=== PATIENT | female | born 1940 | race Caucasian/White ===

== ENCOUNTER 2017-01-18 23:25 | Emergency (ER) | payer MEDICARE, OTHER ==
[2017-01-18] MEDS ORDERED: PHENAZOPYRIDINE HCL 95 MG TABLET PO ONE (23:48)
--- NOTE | 2017-01-18 23:48 | Emergency Department Record ---
History of Present Illness - General Chief complaint: Female Urogenital Problem Stated complaint: UNABLE TO URINATE Time Seen by Provider: 01/18/17 23:40 Source: Patient Mode of Arrival: Ambulatory Limitations: No limitations - History of Present Illness Initial comments: 76 yo female states that around 5:30pm she developed frequency and a pressure to urinate. No fevers, chills, nausea or vomiting. No prior history of the same. No back pain. No flank pain. She has pressure over her lower abdomen MD Complaint: Dysuria, Pelvic pain -: Hour(s) (6) Location: Suprapubic Radiation: Suprapubic Severity: Moderate Quality: Cramping Consistency: Intermittent Improves with: None Worsens with: Urination Associated Symptoms: Denies other symptoms - Related Data Home Medications Medication Instructions Recorded Confirmed Last Taken Levothyroxine Sodium [Levoxyl] 100 mcg PO DAILY 12/20/14 01/18/17 08/08/16 100 Propranolol HCl 40 mg PO BID 12/20/14 01/18/17 08/07/16 40 Simvastatin [Zocor] 10 mg PO QHS 12/20/14 01/18/17 08/07/16 10 Previous Rx's Medication Instructions Recorded Nitrofurantoin Placer [Macrobid] 100 mg PO BID #14 capsule 01/19/17 Phenazopyridine HCl 100 mg PO TID #6 tablet 01/19/17 Allergies Allergy/AdvReac Type Severity Reaction Status Date / Time hydrocodone bitartrate Allergy ALTERED Verified 04/28/16 09:19 [From [place]] MENTAL STATUS hydromorphone HCl Allergy ALTERED Verified 04/28/16 09:19 [From Dilaudid] MENTAL STATUS Review of Systems Constitutional: Denies: Chills, Fever, Malaise, Weakness Eyes: Denies: Eye discharge ENT: Denies: Congestion, Throat pain Respiratory: Denies: Cough Cardiovascular: Denies: Chest pain, Palpitations, Syncope Endocrine: Denies: Fatigue Gastrointestinal: Reports: As per HPI, Abdominal pain. Denies: Diarrhea, Nausea , Vomiting Genitourinary: Reports: Dysuria, Frequency, Retention, Urgency Musculoskeletal: Denies: Arthralgia, Back pain, Myalgia Skin: Denies: Bruising, Change in color, Rash Neurological: Denies: Headache Psychiatric: Denies: Anxiety Hematological/Lymphatic: Denies: Blood Clots, Easy bleeding, Easy bruising, Swollen glands Past Medical History - SOCIAL HISTORY Smoking Status: Never smoker Drug Use: None - RESPIRATORY Hx Respiratory Disorders: No - CARDIOVASCULAR Hx Cardio Disorders: Yes Hx Irregular Heartbeat: Yes (tachycardia) - NEURO Hx Neuro Disorders: No - GI Hx GI Disorders: Yes Hx Diverticulitis: Yes Hx GI Bleed: Yes (since early 1989) Hx Rectal Bleeding: Yes Comment:: sparrow 11 days in april 2016 - Hx Genitourinary Disorders: No - ENDOCRINE Hx Endocrine Disorders: Yes Hx Thyroid Disease: Yes (hypothyroid) - MUSCULOSKELETAL Hx Musculoskeletal Disorders: Yes Hx Arthritis: Yes Hx Gout: Yes - PSYCH Hx Psych Problems: No - HEMATOLOGY/ONCOLOGY Hx Hematology/Oncology Disorders: No Hx Blood Transfusions: Yes (april 2016) Family Medical History Hx Cancer: Father, Mother, Brother/Sister Hx Heart Disease: Grandparents Hx HTN: Grandparents Physical Exam - General General Appearance: Alert, Oriented x3, Cooperative, No acute distress Limitations: No limitations - Head Head exam: Atraumatic, Normal inspection - Eye Eye exam: Normal appearance, PERRL. negative: Conjunctival injection, Periorbital swelling - ENT ENT exam: Normal exam Ear exam: Normal external inspection Nasal Exam: Normal inspection Mouth exam: Normal external inspection - Neck Neck exam: Normal inspection, Full ROM. negative: Tenderness - Respiratory Respiratory exam: Normal lung sounds bilaterally. negative: Respiratory distress - Cardiovascular Cardiovascular Exam: Regular rate, Normal rhythm, Normal heart sounds - GI/Abdominal GI/Abdominal exam: Soft. negative: Distended, Rebound, Rigid, Tenderness - Rectal Rectal exam: Deferred - exam: Deferred - Extremities Extremities exam: Normal inspection, Full ROM, Normal capillary refill. negative: Tenderness - Back Back exam: Reports: Normal inspection, Full ROM. Denies: CVA tenderness (R), CVA tenderness (L), Muscle spasm, Paraspinal tenderness, Rash noted, Tenderness , Vertebral tenderness - Neurological Neurological exam: Alert, Normal gait, Oriented X3 - Psychiatric Psychiatric exam: Normal affect, Normal mood - Skin Skin exam: Dry, Intact, Normal color, Warm Course - Reevaluation(s) Reevaluation #1: EMR reviewed Prior renal function has been in the normal range. 01/18/17 23:53 Reevaluation #2: Bladder Scan 23ml 01/19/17 00:00 Reevaluation #3: No acute changes on the BMP The UA is LE positive, N negative, positive for WBC's and +2 bacteria 01/19/17 00:25 Reevaluation #4: CT reviewed. Negative except suggestion of bladder wall thickening. Diverticulosis without diverticulitis. No renal system stones or pathology. Macrobid and Pyridum provided in the ED No retention on the bladder scan or the CT scan. 01/19/17 00:38 01/19/17 00:41 Medical Decision Making - Lab Data Result diagrams: 01/18/17 23:40 01/18/17 23:55 Disposition Disposition: Discharge Clinical Impression: Urinary tract infection Qualifiers: Urinary tract infection type: acute cystitis Hematuria presence: with hematuria Qualified Code(s): N30.01 - Acute cystitis with hematuria Disposition: Home, Self-Care Condition: (1) Good Instructions: Urinary Tract Infection in Women (ED) Additional Instructions: Call your doctor tomorrow for a recheck Return if worse or unable to urinate Prescriptions: Nitrofurantoin Placer [Macrobid] 100 mg PO BID #14 capsule Phenazopyridine HCl 100 mg PO TID #6 tablet Forms: Patient Portal Access Time of Disposition: 00:40
[2017-01-19 00:06] LABS: BASO % 0.6 % (0-6); EOS % 2.3 % (0-6); GRAN % 68.7 % (47-80); HEMATOCRIT 42.6 % (35.0-47.0); LYMPH % 19.8 % (16-45); MEAN CORPUSCULAR HEMOGLOBIN 29.9 pg (27-33); MEAN CORPUSCULAR HGB CONC 32.9 g/dl (32-36); MEAN PLATELET VOLUME 11.8 fl (7.4-10.4); MONO % 8.6 % (0-9); PLATELET COUNT 268 K/uL (130-400); RED BLOOD COUNT 4.68 M/uL (3.80-5.40); RED CELL DISTRIBUTION WIDTH 14.5 % (11.5-14.5); WHITE BLOOD COUNT W/O DIFF 10.6 K/uL (4.2-12.2)
[2017-01-19 00:08] LABS: URINE APPEARANCE CLEAR; URINE BILIRUBIN NEGATIVE (NEGATIVE); URINE BLOOD LARGE (NEGATIVE); URINE COLOR YELLOW; URINE GLUCOSE (UA) NEGATIVE (NEGATIVE); URINE KETONE NEGATIVE (NEGATIVE); URINE LEUKOCYTE ESTERASE SMALL (NEGATIVE); URINE NITRITE NEGATIVE (NEGATIVE); URINE UROBILINOGEN 0.2 E.U./dL (0.20 - 1.00)
[2017-01-19 00:20] LABS: GLUCOSE,RANDOM 109 mg/dL (70-110)
[2017-01-19 00:21] LABS: BLOOD UREA NITROGEN 14 mg/dL (7-17); CREATININE 0.7 mg/dL (0.52-1.04); EST GLOMERULAR FILTRATION RATE > 60 ml/min
[2017-01-19 00:22] LABS: URINE BACTERIA 2+; URINE WBC 16 - 20 (0-2/hpf)
[2017-01-19] MEDS ORDERED: NITROFURANTOIN MONO 100 MG CAPSULE PO ONE (00:25)
--- NOTE | 2017-01-23 14:44 | CT SCAN REPORT ---
EXAM: CT SCAN OF THE ABDOMEN AND PELVIS WITHOUT CONTRAST HISTORY: DIFFICULTY URINATING WHICH BEGAN SIX HOURS PRIOR TO ADMISSION. TECHNIQUE: Standard CT imaging of the abdomen and pelvis was performed without contrast. Comparison: 04/28/16. Encounter: Not applicable. FINDINGS: The lung bases are clear. A small hiatal hernia is present. The liver parenchyma is normal. The gallbladder is surgically absent. The biliary tree, pancreas, spleen, and adrenal glands are normal. The kidneys and ureters are unremarkable. There is no urinary tract calculus or obstructive uropathy. The urinary bladder is incompletely distended. Minor wall thickening is likely artifactual due to the incomplete distention. There are no significant surrounding inflammatory changes. There is a small amount of nonspecific fluid within the pelvis. The uterus is surgically absent. The aorta is normal in caliber. There is no retroperitoneal lymphadenopathy. There are scattered diverticula within the colon and greatest within the sigmoid region. There is no evidence for acute diverticulitis. The bowel and mesentery are otherwise normal. There is no pneumoperitoneum. Degenerative changes are present within the spine. There are no acute osseous abnormalities. IMPRESSION: 1. THERE IS NO EVIDENCE FOR URINARY TRACT CALCULUS OR OBSTRUCTIVE UROPATHY. 2. A SMALL AMOUNT OF NONSPECIFIC FREE FLUID IS PRESENT WITHIN THE PELVIS. 3. COLONIC DIVERTICULOSIS WITH NO EVIDENCE FOR ACUTE DIVERTICULITIS. 4. SMALL HIATAL HERNIA. JOB NUMBER: [id number] [facility]
== END 2017-01-19 00:55 | disposition home or self-care (01) ==
LOC: ER 23:25
DX: N30.01 Acute cystitis with hematuria (principal); K57.90 Diverticulosis of intestine, part unspecified, without perforation or abscess without bleeding
CPT/HCPCS: 74176; 80048; 81001; 85025; 99283; 99284

== ENCOUNTER 2018-11-30 12:41 | Emergency (ER) | payer MEDICARE, OTHER ==
[2018-11-30] MEDS ORDERED: 0.9 % SODIUM CHLORIDE 1,000 ML BAG IV ONE (12:49)
--- NOTE | 2018-11-30 12:52 | Emergency Department Record ---
History of Present Illness - General Chief Complaint: Abdominal Pain Stated Complaint: STOMACH PAIN Time Seen by Provider: 11/30/18 12:43 Source: Patient Mode of Arrival: Ambulatory Limitations: No limitations - History of Present Illness Initial Comments: 78 yo female presents with abdominal pain. The pain started about 2 days ago but it was very mild. The pain has gradually worsened. It is on the left side mostly. The pain increased over the night. No vomiting or diarrhea. No dysuria. No blood in the stools. She felt a little chilled. She has a mild decrease in her appetite. She has a history of prior diverticulosis, diverticular bleed, diverticulosis. PCP is Dr Curry. Complaint: Abdominal pain -: Days(s) (2) Location: LLQ Radiation: LLQ Migration to: LLQ Severity: Moderate Quality: Aching Consistency: Constant Improves With: Nothing Worsens With: Movement Context: Other Associated Symptoms: Other Treatments Prior to Arrival: Other - Related Data Home Medications Medication Instructions Recorded Confirmed Last Taken Enalapril Maleate 5 mg PO DAILY 11/30/18 11/30/18 11/30/18 Previous Rx's Medication Instructions Recorded Ciprofloxacin HCl [Cipro] 500 mg PO Q12HR #14 tablet 11/30/18 Metronidazole [Flagyl] 500 mg PO TID #21 tablet 11/30/18 Allergies Allergy/AdvReac Type Severity Reaction Status Date / Time hydrocodone bitartrate Allergy ALTERED Verified 04/28/16 09:19 [From [place]] MENTAL STATUS hydromorphone HCl Allergy ALTERED Verified 04/28/16 09:19 [From Dilaudid] MENTAL STATUS Review of Systems Constitutional: Denies: Chills, Fever, Malaise, Weakness Eyes: Denies: Eye discharge ENT: Denies: Congestion, Throat pain Respiratory: Denies: Cough, Dyspnea Cardiovascular: Denies: Chest pain, Palpitations, Syncope Endocrine: Denies: Fatigue Gastrointestinal: Reports: Abdominal pain Genitourinary: Denies: Dysuria Musculoskeletal: Denies: Arthralgia, Back pain, Myalgia Skin: Denies: Bruising, Change in color, Rash Neurological: Denies: Headache Psychiatric: Denies: Anxiety Hematological/Lymphatic: Denies: Blood Clots, Easy bleeding, Easy bruising Past Medical History - SOCIAL HISTORY Smoking Status: Never smoker Drug Use: None - RESPIRATORY Hx Respiratory Disorders: No - CARDIOVASCULAR Hx Cardio Disorders: Yes Hx Irregular Heartbeat: Yes (tachycardia) - NEURO Hx Neuro Disorders: No - GI Hx GI Disorders: Yes Hx Diverticulitis: Yes Hx GI Bleed: Yes (since early 1989) Hx Rectal Bleeding: Yes Comment:: [place] 11 days in april 2016 - Hx Genitourinary Disorders: No - ENDOCRINE Hx Endocrine Disorders: Yes Hx Thyroid Disease: Yes (hypothyroid) - MUSCULOSKELETAL Hx Musculoskeletal Disorders: Yes Hx Arthritis: Yes Hx Gout: Yes - PSYCH Hx Psych Problems: No - HEMATOLOGY/ONCOLOGY Hx Hematology/Oncology Disorders: No Hx Blood Transfusions: Yes (april 2016) Family Medical History Hx Cancer: Father, Mother, Brother/Sister Hx Heart Disease: Grandparents Hx HTN: Grandparents Physical Exam - General General Appearance: Alert, Oriented x3, Cooperative, No acute distress Limitations: No limitations - Head Head exam: Atraumatic, Normal inspection - Eye Eye exam: Normal appearance. negative: Conjunctival injection - ENT ENT exam: Normal exam Ear exam: Normal external inspection Nasal Exam: Normal inspection Mouth exam: Normal external inspection - Neck Neck exam: Normal inspection - Respiratory Respiratory exam: Normal lung sounds bilaterally. negative: Accessory muscle use, Respiratory distress, Wheezes - Cardiovascular Cardiovascular Exam: Regular rate, Normal rhythm, Normal heart sounds - GI/Abdominal GI/Abdominal exam: Soft, Normal bowel sounds, Tenderness (tender abdomen on the left. the remainder of the abdomen is very soft, mild tenderness on examination ). negative: Diminished bowel sounds, Distended, Guarding, Hypoactive bowel sounds, Rebound - Rectal Rectal exam: Deferred - Extremities Extremities exam: Normal inspection - Back Back exam: Denies: CVA tenderness (R), CVA tenderness (L) - Neurological Neurological exam: Alert, Normal gait, Oriented X3. negative: Abnormal gait - Psychiatric Psychiatric exam: Normal affect, Normal mood. negative: Agitated, Anxious - Skin Skin exam: Dry, Intact, Normal color, Warm Course - Reevaluation(s) Reevaluation #1: Vitals reviewed. No significant abnormalities. Prior admission and CT reviewed from 2017. Diverticulosis noted. 11/30/18 13:04 11/30/18 13:19 CBC was reviewed. WBC is 17 11/30/18 13:35 No acute changes on the BMP. Normal renal function. 11/30/18 13:53 Pain improved with the Ofirmev Lipase and LFT's are normal 11/30/18 16:[address] scan was reviewed. Thickening of the descending and sigmoid colon with inflammation. Diverticulosis noted. The differential included diverticulitis, ischemia, non specific inflammation. Given her gradual onset, history of diverticulitis, clinically appearing well and non ill diverticulitis is the most likely cause. I discussed this with the patient. She was given Cipro and Flagyl. We discussed treatment options. Her pain is essential gone at this time, she is eating normally. She is a reliable good outpatient candidate that will return if worse or any new concerns. Medical Decision Making - Lab Data Result diagrams: 11/30/18 13:05 11/30/18 13:05 Disposition Disposition: Discharge Clinical Impression: Diverticulitis Disposition: Home, Self-Care Condition: (1) Good Instructions: Diverticulitis (ED), Abdominal Pain (ED) Additional Instructions: [place] diet for the next week Immediately return if worse, uncontrolled pain, blood in the stools, fever Take the antibiotics as directed for one week Follow up with Dr Curry as scheduled. Prescriptions: Ciprofloxacin HCl [Cipro] 500 mg PO Q12HR #14 tablet Metronidazole [Flagyl] 500 mg PO TID #21 tablet Forms: Patient Portal Access Time of Disposition: 16:24 Quality - Quality Measures Quality Measures: N/A - Blood Pressure Screening Does Patient Have Any of the Following: Active Dx of HTN Blood Pressure Classification: Normal BP Reading Systolic Measurement: 107 Diastolic Measurement: 67 Screening for High Blood Pressure: Patient Exclusion, Hx of HTN [[id number]]
[2018-11-30] MEDS ORDERED: ACETAMINOPHEN 1,000 MG/100 ML BTL IVPB ONE (13:00)
[2018-11-30 13:17] LABS: BASO % 0.2 % (0-6); EOS % 1.6 % (0-6); HEMATOCRIT 40.6 % (35.0-47.0); HEMOGLOBIN 13.9 gm/dl (11.6-16.0); LYMPH % 9.3 % (16-45); MEAN CELL VOLUME 91.9 fl (81-97); MEAN CORPUSCULAR HEMOGLOBIN 31.4 pg (27-33); MEAN CORPUSCULAR HGB CONC 34.2 g/dl (32-36); MEAN PLATELET VOLUME 11.8 fl (7.4-10.4); MONO % 10.9 % (0-9); PLATELET COUNT 245 K/uL (130-400); RED BLOOD COUNT 4.42 M/uL (3.80-5.40); RED CELL DISTRIBUTION WIDTH 14.1 % (11.5-14.5); WHITE BLOOD COUNT W/O DIFF 17.1 K/uL (4.2-12.2)
[2018-11-30 13:30] LABS: BLOOD UREA NITROGEN 10 mg/dL (8-23); CREATININE 0.6 mg/dL (0.5-0.9); EST GLOMERULAR FILTRATION RATE > 60 mL/min
[2018-11-30 13:31] LABS: TOTAL PROTEIN 7.5 g/dL (6.6-8.7)
[2018-11-30 13:33] LABS: GLUCOSE,RANDOM 101 mg/dL (74-109)
[2018-11-30 13:36] LABS: ALB/GLOB RATIO 1.2 (1.1-1.8); ALBUMIN 4.1 g/dL (4.0-5.0); ALKALINE PHOSPHATASE 73 U/L (45-87); ALT/SGPT 6 U/L (<33); AST/SGOT 14 U/L (10.0-35.0); LIPASE 20 U/L (13-60)
[2018-11-30 14:26] LABS: URINE APPEARANCE CLEAR; URINE BILIRUBIN NEGATIVE (NEGATIVE); URINE BLOOD SMALL (NEGATIVE); URINE COLOR YELLOW; URINE GLUCOSE (UA) NEGATIVE (NEGATIVE); URINE KETONE NEGATIVE (NEGATIVE); URINE LEUKOCYTE ESTERASE NEGATIVE (NEGATIVE); URINE NITRITE NEGATIVE (NEGATIVE); URINE PROTEIN NEGATIVE (NEGATIVE); URINE UROBILINOGEN 0.2 E.U./dL (0.20 - 1.00)
[2018-11-30 14:34] LABS: URINE RBC 0 - 2 (NONE SEEN); URINE WBC NONE SEEN (0-2/hpf)
[2018-11-30] MEDS ORDERED: METRONIDAZOLE 250 MG TABLET PO ONE (16:15)
[2018-11-30] MEDS ORDERED: CIPROFLOXACIN HCL 500 MG TABLET PO ONE (16:15)
--- NOTE | 2018-12-02 09:35 | CT SCAN REPORT ---
EXAM: CT OF THE ABDOMEN AND PELVIS HISTORY: MID LEFT ABDOMINAL PAIN. TECHNIQUE: CT of the abdomen and pelvis was performed following intravenous and oral contrast administration. 100 ml of Omnipaque 300 contrast are used for this exam. Comparison: 01/19/17. FINDINGS: Linear scarring is seen at the right lung base. No lung nodule or mass. There is a small hiatal hernia present. There is diverticulosis involving the descending colon and sigmoid colon. There is wall thickening of the distal descending colon and proximal sigmoid colon and there are adjacent inflammatory changes. There is no focal fluid collection or abscess identified. There is no free air. There is a tiny amount of free fluid present. This was also seen previously and is nonspecific. The liver and spleen are unremarkable. No pancreatic mass or inflammatory change. No adrenal lesion. The gallbladder is surgically absent. There is bilateral renal function with no renal mass or hydronephrosis. There is no aortic aneurysm. There is a retroaortic left renal vein which is a normal variation. There is no periaortic mass or adenopathy. There are no dilated bowel loops. The uterus is surgically absent. No lytic or blastic bone lesion. The anterior abdominal wall is unremarkable. IMPRESSION: 1. THERE IS DIVERTICULOSIS. 2. THERE ARE INFLAMMATORY CHANGES IN THE WALL OF THE DISTAL DESCENDING COLON AND PROXIMAL SIGMOID COLON. THIS MAY BE DUE TO DIVERTICULITIS. OTHER CONSIDERATIONS WOULD INCLUDE INFECTIOUS OR ISCHEMIC PROCESSES. 3. NO ABSCESS OR FREE AIR. 4. TINY AMOUNT OF FREE FLUID WHICH MAY BE PHYSIOLOGIC. 5. PRIOR HYSTERECTOMY AND CHOLECYSTECTOMY. 6. SMALL HIATAL HERNIA. 7. PLEASE SEE ABOVE FOR FULL DISCUSSION. JOB NUMBER: [id number] [facility]
== END 2018-11-30 16:39 | disposition home or self-care (01) ==
LOC: ER 12:41
DX: K57.92 Diverticulitis of intestine, part unspecified, without perforation or abscess without bleeding (principal); I10 Essential (primary) hypertension
CPT/HCPCS: 99284 ×2; 96365; 83690; 85025; 80053; 81001; 74177; Q9967; J7030

== ENCOUNTER 2019-04-21 09:33 | Day surgery (SDC) | payer MEDICARE, OTHER ==
[2019-04-21] MEDS ORDERED: PROPOFOL 10 MG/ML VIAL IV ONE (09:34)
[2019-04-21] MEDS ORDERED: LIDOCAINE 2% MDV (20MG/ML) 20ML VIAL IV ONE (09:34)
--- NOTE | 2019-04-23 09:40 | Operative Note ---
DATE OF SURGERY: 04/21/2019 SURGEON: Erich Lopez D.O. REFERRING PHYSICIAN: Kenneth Curry D.O. OPERATION: 1. COLONOSCOPY TO THE CECUM WITH COLD SNARE POLYPECTOMY x2. 2. ENDOCLIP PLACEMENT BY ANTONIO AND BIOPSY. INDICATION: History of adenomatous polyps, family history of colon cancer in both parents. She presents at this time after 3 years for surveillance, as previous examinations demonstrated multiple adenomatous polyps. ANESTHESIA: Intravenous sedation was administered by the Department of Anesthesiology and included Diprivan titrated to effect. PROCEDURE: Following informed consent from this alert individual, including a discussion of the risks and benefits of the procedure and opportunity for the patient to ask questions, the patient was in the left lateral decubitus position. Digital rectal examination was performed. No abnormalities were noted. Following this, the Olympus PCF 180 video colonoscope was inserted in the rectum without resistance. The rectal mucosa had a normal appearance with normal folds and distensibility. The sigmoid colon had scattered diverticula noted throughout. The colonoscope was further advanced up through the descending colon, the transverse colon through the ascending colon to the cecum. Throughout the remainder of the bowel the mucosa appeared normal, folds were normal, the bowel was fairly well distensible. The cecum was defined by noting the appendiceal orifice and the ileocecal valve. At the base of the cecum there was a diminutive 4 mm polyp noted which was removed with cold snare polypectomy. There was initially some bleeding noted and for this reason, an Endoclip was placed with hemostasis noted. From the base of the cecum, the colonoscope was then slowly withdrawn. The colon preparation overall was good. In the transverse colon there was a 2nd polyp measuring 5 mm in size which was removed with cold snare polypectomy and suctioned through the colonoscope into a collection trap. Upon withdrawal through the sigmoid colon there was extensive diverticulosis. There was one area where there was an inflammatory-appearing polyp noted in the diverticulum with purulent exudate noted emanating from that diverticulum. The area was washed and then a small biopsy was taken of the inflammatory-appearing polyp in the sigmoid colon. The colonoscope was then further withdrawn. The remainder of the examination was unremarkable. Retroflexion in the rectum was endoscopically normal. The endoscope was straightened and withdrawn. The patient tolerated the procedure well and was returned to the recovery area in stable condition. IMPRESSION: 1. Sigmoid diverticulosis with one focus of probable diverticulitis with purulent exudate and inflammatory-appearing polyp, biopsy taken. 2. A 4 mm cecal polyp, removed with cold snare polypectomy, Endoclip placed with hemostasis noted. 3. A 5 mm transverse colon polyp removed with cold snare polypectomy. RECOMMENDATIONS: Further recommendations will be forthcoming pending results of pathology obtained today. I will start the patient with a combination of Cipro and Flagyl to treat the diverticulitis, which was apparent endoscopically. Clinically, she denies significant discomfort. Followup will also be with Dr. Kenneth Curry. As always, thank you for allowing me to participate in the care of your patient. IGOR
== END 2019-04-21 12:05 | disposition home or self-care (01) ==
LOC: HOP 09:33
PROVIDERS: ATTEND Internal Medicine Gastroenterology
DX: Z09 Encounter for follow-up examination after completed treatment for conditions other than malignant neoplasm (principal); Z86.010 Personal history of colon polyps; D12.0 Benign neoplasm of cecum; D12.3 Benign neoplasm of transverse colon; D12.5 Benign neoplasm of sigmoid colon; K57.30 Diverticulosis of large intestine without perforation or abscess without bleeding; Z80.0 Family history of malignant neoplasm of digestive organs; I10 Essential (primary) hypertension; E78.00 Pure hypercholesterolemia, unspecified; E03.9 Hypothyroidism, unspecified

== ENCOUNTER 2019-06-16 11:02 | Emergency (ER) | payer MEDICARE, OTHER ==
[2019-06-16] MEDS ORDERED: 0.9 % SODIUM CHLORIDE 1,000 ML BAG IV ONE (11:27)
[2019-06-16 11:43] LABS: ABSOLUTE NEUTROPHIL COUNT 7.68; HEMATOCRIT 45.4 % (35.0-47.0); HEMOGLOBIN 14.3 gm/dl (11.6-16.0); MEAN CORPUSCULAR HEMOGLOBIN 29.9 pg (27-33); MEAN CORPUSCULAR HGB CONC 31.5 g/dl (32-36); MEAN PLATELET VOLUME 12.2 fl (7.4-10.4); PLATELET COUNT 210 K/uL (130-400); RED BLOOD COUNT 4.78 M/uL (3.80-5.40); WHITE BLOOD COUNT W/O DIFF 8.2 K/uL (4.2-12.2)
[2019-06-16 11:55] LABS: PLATELET ESTIMATE NORMAL (NORMAL)
[2019-06-16 11:57] LABS: BLOOD UREA NITROGEN 13 mg/dL (8-23)
[2019-06-16 11:58] LABS: CREATININE 0.8 mg/dL (0.5-0.9); EST GLOMERULAR FILTRATION RATE > 60 mL/min; TOTAL PROTEIN 7.4 g/dL (6.6-8.7)
[2019-06-16 12:00] LABS: GLUCOSE,RANDOM 97 mg/dL (74-109)
[2019-06-16 12:03] LABS: ALB/GLOB RATIO 1.4 (1.1-1.8); ALBUMIN 4.3 g/dL (4.0-5.0); ALKALINE PHOSPHATASE 86 U/L (35-104); ALT/SGPT 8 U/L (<33); AST/SGOT 20 U/L (10.0-35.0)
[2019-06-16 13:08] LABS: URINE APPEARANCE CLEAR; URINE BILIRUBIN NEGATIVE (NEGATIVE); URINE BLOOD NEGATIVE (NEGATIVE); URINE COLOR YELLOW; URINE GLUCOSE (UA) NEGATIVE (NEGATIVE); URINE KETONE NEGATIVE (NEGATIVE); URINE LEUKOCYTE ESTERASE NEGATIVE (NEGATIVE); URINE NITRITE NEGATIVE (NEGATIVE); URINE PROTEIN NEGATIVE (NEGATIVE); URINE UROBILINOGEN 0.2 E.U./dL (0.20 - 1.00)
--- NOTE | 2019-06-16 13:59 | Emergency Department Record ---
History of Present Illness - General Chief Complaint: Fever Stated Complaint: Chills, shakes Time Seen by Provider: 06/16/19 11:22 Source: Patient Mode of Arrival: EMS Limitations: No limitations - History of Present Illness Initial Comments: pt has chills, shakes, feels weak and has body aches. MD Complaint: Weakness Onset/Timin -: Week(s) Maximum Temperature: 100.2 F Temperature Source: Oral Context: Recent travel Associated Symptoms: Chills, Headache - Related Data Allergies Allergy/AdvReac Type Severity Reaction Status Date / Time hydrocodone bitartrate Allergy ALTERED Verified 06/16/19 11:11 [From [place]] MENTAL STATUS hydromorphone HCl Allergy ALTERED Verified 06/16/19 11:11 [From Dilaudid] MENTAL STATUS Travel Screening - Travel/Exposure Within Last 30 Days Have you traveled within the last 30 days?: Yes Location Detail:: [place] - Travel Symptoms Symptom Screening: Fever (Subjective), Joint & Muscle Aches, Weakness Review of Systems Reviewed: No additional complaints except as noted below Constitutional: Reports: As per HPI, Chills, Malaise, Weakness. Denies: Fever, Night sweats, Weight change Eyes: Reports: As per HPI. Denies: Eye discharge, Eye pain, Photophobia, Vision change ENT: Reports: As per HPI. Denies: Congestion, Dental pain, Ear pain, Epistaxis, Hearing loss, Throat pain Respiratory: Reports: As per HPI. Denies: Cough, Dyspnea, Hemoptysis, Stridor, Wheezes Cardiovascular: Reports: As per HPI. Denies: Arrhythmia, Chest pain, Dyspnea on exertion, Edema, Murmurs, Orthopnea, Palpitations, Paroxysmal nocturnal dyspnea, Rheumatic Fever, Syncope Endocrine: Reports: As per HPI, Fatigue. Denies: Heat or cold intolerance, Polydipsia, Polyuria Gastrointestinal: Reports: As per HPI. Denies: Abdominal pain, Constipation, Diarrhea, Hematemesis, Hematochezia, Melena, Nausea, Vomiting Genitourinary: Reports: As per HPI. Denies: Abnormal menses, Discharge, Dyspareunia, Dysuria, Frequency, Hematuria, Incontinence, Retention, Urgency Musculoskeletal: Reports: As per HPI. Denies: Arthralgia, Back pain, Gout, Joint swelling, Myalgia, Neck pain Skin: Reports: As per HPI. Denies: Bruising, Change in color, Change in hair/nails, Lesions, Pruritus, Rash Neurological: Reports: As per HPI. Denies: Abnormal gait, Confusion, Headache, Numbness, Paresthesias, Seizure, Tingling, Tremors, Vertigo, Weakness Psychiatric: Reports: As per HPI. Denies: Anxiety, Auditory hallucinations, Depression, Homicidal thoughts, Suicidal thoughts, Visual hallucinations Hematological/Lymphatic: Reports: As per HPI. Denies: Anemia, Blood Clots, Easy bleeding, Easy bruising, Swollen glands Past Medical History - SOCIAL HISTORY Smoking Status: Never smoker Alcohol Use: None Drug Use: None - RESPIRATORY Hx Respiratory Disorders: No - CARDIOVASCULAR Hx Cardio Disorders: Yes Hx Hypertension: Yes Hx Irregular Heartbeat: Yes (tachycardia) Comment:: high cholesterol - NEURO Hx Neuro Disorders: No - GI Hx GI Disorders: Yes Hx Diverticulitis: Yes Hx GI Bleed: Yes (since early 1989) Hx Reflux: Yes Hx Rectal Bleeding: Yes Hx of Polyps: Yes Comment:: . - Hx Genitourinary Disorders: No - ENDOCRINE Hx Endocrine Disorders: Yes Hx Thyroid Disease: Yes (hypothyroid) - MUSCULOSKELETAL Hx Musculoskeletal Disorders: Yes Hx Arthritis: Yes Hx Gout: Yes - PSYCH Hx Psych Problems: No - HEMATOLOGY/ONCOLOGY Hx Hematology/Oncology Disorders: Yes Hx Anemia: Yes Hx Blood Transfusions: Yes (april 2016) Hx Blood Transfusion Reaction: No Family Medical History Any Significant Family History?: Yes Hx Cancer: Father, Mother, Brother/Sister Hx Heart Disease: Grandparents Hx HTN: Grandparents Physical Exam - General General Appearance: Alert, Oriented x3, Cooperative, Mild distress - Head Head exam: Normal inspection - Eye Eye exam: Normal appearance, PERRL, EOMI Pupils: Normal accommodation - ENT ENT exam: Normal exam, Mucous membranes moist, Normal external ear exam, Normal orophraynx Ear exam: Normal external inspection. negative: External canal tenderness Nasal Exam: Normal inspection. negative: Discharge, Sinus tenderness Mouth exam: Normal external inspection, Tongue normal Teeth exam: Normal inspection. negative: Dental caries Throat exam: Normal inspection. negative: Tonsillar erythema, Tonsillar exudate - Neck Neck exam: Normal inspection, Full ROM. negative: Tenderness - Respiratory Respiratory exam: Normal lung sounds bilaterally. negative: Respiratory distress - Cardiovascular Cardiovascular Exam: Regular rate, Normal rhythm, Normal heart sounds - GI/Abdominal GI/Abdominal exam: Soft, Normal bowel sounds. negative: Tenderness - Rectal Rectal exam: Deferred - exam: Deferred - Extremities Extremities exam: Normal inspection, Full ROM, Normal capillary refill. negative: Tenderness - Back Back exam: Reports: Normal inspection, Full ROM. 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 Reevaluation #2: 06/16/19 14:04 d/w dr lott Medical Decision Making - Lab Data Result diagrams: 06/16/19 11:42 06/16/19 11:42 Lab Results 06/16/19 06/16/19 06/16/19 Range/Units 11:42 11:42 13:00 WBC 8.2 (4.2-12.2) K/uL RBC 4.78 (3.80-5.40) M/uL Hgb 14.3 (11.6-16.0) gm/dl Hct 45.4 (35.0-47.0) % MCV 95.0 (81-97) fl MCH 29.9 (27-33) pg MCHC 31.5 L (32-36) g/dl RDW 14.0 (11.5-14.5) % Plt Count 210 (130-400) K/uL MPV 12.2 H (7.4-10.4) fl Neutrophils % 92.0 H (47-80) % Band Neutrophils % 3.0 (0-5) % Eosinophils % Not Reportable Basophils % Not Reportable Absolute Neutrophils 7.68 Lymphocytes 4.0 L (16-45) % Monocytes 1.0 (0-9) % Platelet Estimate Normal (NORMAL) RBC Morphology Normal Sodium 144 (136-145) mmol/L Potassium 4.3 (3.4-4.5) mmol/L Chloride 104 (98-107) mmol/L Carbon Dioxide 28.0 (22-29) mmol/L Anion Gap 12.0 (7-16) BUN 13 (8-23) mg/dL Creatinine 0.8 (0.5-0.9) mg/dL Estimated GFR > 60 mL/min Random Glucose 97 (74-109) mg/dL Lactic Acid 2.0 (0.5-2.2) mmol/L Calcium 9.2 (8.8-10.2) mg/dL Total Bilirubin 0.70 (0.2-1.0) mg/dL AST 20 (10.0-35.0) U/L ALT 8 (<33) U/L Alkaline Phosphatase 86 (35-104) U/L Total Protein 7.4 (6.6-8.7) g/dL Albumin 4.3 (4.0-5.0) g/dL Globulin 3.1 (1.4-4.8) gm/dL Albumin/Globulin Ratio 1.4 (1.1-1.8) Urine Color Yellow Urine Appearance Clear Urine pH 6.5 (5.0-8.0) Ur Specific [place] 1.020 (1.002-1.030) Urine Protein Negative (NEGATIVE) Urine Glucose (UA) Negative (NEGATIVE) Urine Ketones Negative (NEGATIVE) Urine Blood Negative (NEGATIVE) Urine Nitrite Negative (NEGATIVE) Urine Bilirubin Negative (NEGATIVE) Urine Urobilinogen 0.2 (0.20 - 1.00) E.U./dL Ur Leukocyte Esterase Negative (NEGATIVE) Disposition Disposition: Discharge Clinical Impression: Mass of lung Disposition: Home, Self-Care Condition: (1) Good Instructions: Weakness (ED), Pulmonary Nodules (ED) Additional Instructions: follow up with dr lott this week. return sooner ifworse. push fluids Quality - Quality Measures Quality Measures: N/A - Blood Pressure Screening Does Patient Have Any of the Following: No Blood Pressure Classification: Normal BP Reading Systolic Measurement: 117 Diastolic Measurement: 76 Screening for High Blood Pressure: < Normal BP, F/U Not Required > [G3192]
[2019-06-16] MEDS ORDERED: AZITHROMYCIN 500 MG TABLET PO ONE (14:21)
--- NOTE | 2019-06-16 14:25 | Emergency Department Record ---
History of Present Illness - General Chief Complaint: Fever Stated Complaint: Chills, shakes Time Seen by Provider: 06/16/19 11:22 Source: Patient Mode of Arrival: EMS Limitations: No limitations - History of Present Illness Onset/Timin -: Week(s) Maximum Temperature: 100.2 F Temperature Source: Oral Context: Recent travel Associated Symptoms: Chills, Headache - Related Data Previous Rx's Medication Instructions Recorded Azithromycin [Zithromax] 250 mg PO DAILY #4 tab 06/16/19 Allergies Allergy/AdvReac Type Severity Reaction Status Date / Time hydrocodone bitartrate Allergy ALTERED Verified 06/16/19 11:11 [From [place]] MENTAL STATUS hydromorphone HCl Allergy ALTERED Verified 06/16/19 11:11 [From Dilaudid] MENTAL STATUS Travel Screening - Travel/Exposure Within Last 30 Days Have you traveled within the last 30 days?: Yes Location Detail:: [place] - Travel Symptoms Symptom Screening: Fever (Subjective), Joint & Muscle Aches, Weakness Review of Systems Constitutional: Reports: As per HPI, Chills, Malaise, Weakness. Denies: Fever, Night sweats, Weight change Eyes: Reports: As per HPI. Denies: Eye discharge, Eye pain, Photophobia, Vision change ENT: Reports: As per HPI. Denies: Congestion, Dental pain, Ear pain, Epistaxis, Hearing loss, Throat pain Respiratory: Reports: As per HPI. Denies: Cough, Dyspnea, Hemoptysis, Stridor, Wheezes Cardiovascular: Reports: As per HPI. Denies: Arrhythmia, Chest pain, Dyspnea on exertion, Edema, Murmurs, Orthopnea, Palpitations, Paroxysmal nocturnal dyspnea, Rheumatic Fever, Syncope Endocrine: Reports: As per HPI, Fatigue. Denies: Heat or cold intolerance, Po lydipsia, Polyuria Gastrointestinal: Reports: As per HPI. Denies: Abdominal pain, Constipation, Diarrhea, Hematemesis, Hematochezia, Melena, Nausea, Vomiting Genitourinary: Reports: As per HPI. Denies: Abnormal menses, Discharge, Dyspareunia, Dysuria, Frequency, Hematuria, Incontinence, Retention, Urgency Musculoskeletal: Reports: As per HPI. Denies: Arthralgia, Back pain, Gout, Joint swelling, Myalgia, Neck pain Skin: Reports: As per HPI. Denies: Bruising, Change in color, Change in hair/na ils, Lesions, Pruritus, Rash Neurological: Reports: As per HPI. Denies: Abnormal gait, Confusion, Headache, Numbness, Paresthesias, Seizure, Tingling, Tremors, Vertigo, Weakness Psychiatric: Reports: As per HPI. Denies: Anxiety, Auditory hallucinations, Depression, Homicidal thoughts, Suicidal thoughts, Visual hallucinations Hematological/Lymphatic: Reports: As per HPI. Denies: Anemia, Blood Clots, Easy bleeding, Easy bruising, Swollen glands Past Medical History - SOCIAL HISTORY Smoking Status: Never smoker Alcohol Use: None Drug Use: None - RESPIRATORY Hx Respiratory Disorders: No - CARDIOVASCULAR Hx Cardio Disorders: Yes Hx Hypertension: Yes Hx Irregular Heartbeat: Yes (tachycardia) Comment:: high cholesterol - NEURO Hx Neuro Disorders: No - GI Hx GI Disorders: Yes Hx Diverticulitis: Yes Hx GI Bleed: Yes (since early 1989) Hx Reflux: Yes Hx Rectal Bleeding: Yes Hx of Polyps: Yes Comment:: . - Hx Genitourinary Disorders: No - ENDOCRINE Hx Endocrine Disorders: Yes Hx Thyroid Disease: Yes (hypothyroid) - MUSCULOSKELETAL Hx Musculoskeletal Disorders: Yes Hx Arthritis: Yes Hx Gout: Yes - PSYCH Hx Psych Problems: No - HEMATOLOGY/ONCOLOGY Hx Hematology/Oncology Disorders: Yes Hx Anemia: Yes Hx Blood Transfusions: Yes (april 2016) Hx Blood Transfusion Reaction: No Family Medical History Any Significant Family History?: Yes Hx Cancer: Father, Mother, Brother/Sister Hx Heart Disease: Grandparents Hx HTN: Grandparents Physical Exam - General Limitations: No limitations Course Vital Signs 06/16/19 06/16/19 11:04 11:27 Temperature 98.6 F Pulse Rate 102 H Respiratory 22 Rate Blood Pressure 117/76 Pulse Ox 95 90 L Medical Decision Making - Lab Data Result diagrams: 06/16/19 11:42 06/16/19 11:42 Lab Results 06/16/19 06/16/19 06/16/19 Range/Units 11:42 11:42 13:00 WBC 8.2 (4.2-12.2) K/uL RBC 4.78 (3.80-5.40) M/uL Hgb 14.3 (11.6-16.0) gm/dl Hct 45.4 (35.0-47.0) % MCV 95.0 (81-97) fl MCH 29.9 (27-33) pg MCHC 31.5 L (32-36) g/dl RDW 14.0 (11.5-14.5) % Plt Count 210 (130-400) K/uL MPV 12.2 H (7.4-10.4) fl Neutrophils % 92.0 H (47-80) % Band Neutrophils % 3.0 (0-5) % Eosinophils % Not Reportable Basophils % Not Reportable Absolute Neutrophils 7.68 Lymphocytes 4.0 L (16-45) % Monocytes 1.0 (0-9) % Platelet Estimate Normal (NORMAL) RBC Morphology Normal Sodium 144 (136-145) mmol/L Potassium 4.3 (3.4-4.5) mmol/L Chloride 104 (98-107) mmol/L Carbon Dioxide 28.0 (22-29) mmol/L Anion Gap 12.0 (7-16) BUN 13 (8-23) mg/dL Creatinine 0.8 (0.5-0.9) mg/dL Estimated GFR > 60 mL/min Random Glucose 97 (74-109) mg/dL Lactic Acid 2.0 (0.5-2.2) mmol/L Calcium 9.2 (8.8-10.2) mg/dL Total Bilirubin 0.70 (0.2-1.0) mg/dL AST 20 (10.0-35.0) U/L ALT 8 (<33) U/L Alkaline Phosphatase 86 (35-104) U/L Total Protein 7.4 (6.6-8.7) g/dL Albumin 4.3 (4.0-5.0) g/dL Globulin 3.1 (1.4-4.8) gm/dL Albumin/Globulin Ratio 1.4 (1.1-1.8) Urine Color Yellow Urine Appearance Clear Urine pH 6.5 (5.0-8.0) Ur Specific [place] 1.020 (1.002-1.030) Urine Protein Negative (NEGATIVE) Urine Glucose (UA) Negative (NEGATIVE) Urine Ketones Negative (NEGATIVE) Urine Blood Negative (NEGATIVE) Urine Nitrite Negative (NEGATIVE) Urine Bilirubin Negative (NEGATIVE) Urine Urobilinogen 0.2 (0.20 - 1.00) E.U./dL Ur Leukocyte Esterase Negative (NEGATIVE) Disposition Disposition: Discharge Clinical Impression: Mass of lung Disposition: Home, Self-Care Condition: (1) Good Instructions: Weakness (ED), Pulmonary Nodules (ED) Additional Instructions: follow up with dr lott this week. return sooner ifworse. push fluids Prescriptions: Azithromycin [Zithromax] 250 mg PO DAILY #4 tab Forms: Patient Portal Access Quality - Quality Measures Quality Measures: N/A - Blood Pressure Screening Does Patient Have Any of the Following: No Blood Pressure Classification: Normal BP Reading Systolic Measurement: 117 Diastolic Measurement: 76 Screening for High Blood Pressure: < Normal BP, F/U Not Required > [G8783]
--- NOTE | 2019-06-17 08:11 | RADIOLOGY REPORT ---
EXAM: CHEST, TWO VIEWS HISTORY: FEVER. CHILLS. TECHNIQUE: Upright PA and lateral views of the chest were obtained. Comparison: Two view chest radiographic examination dated 12/20/14. CT chest with contrast dated 12/24/14. FINDINGS: The heart remains in normal in size. No pulmonary venous hypertension is seen. There is a well circumscribed mass in the superior segment of the right lower lobe measuring 7.7 x 6.5 x 7 cm. On the prior radiographic examination dated 12/20/14, this measures 2.2 x 2.4 x 3.1 cm. This mass was previously biopsied at [facility] and a solitary fibrous tumor was diagnosed. The lungs and pleural spaces are otherwise clear. Mild degenerative changes are scattered within the visualized spine and shoulder girdles. Surgical clips are noted in the upper abdomen. IMPRESSION: 1. WELL CIRCUMSCRIBED MASS IN THE SUPERIOR SEGMENT OF THE RIGHT LOWER LOBE MEASURING 7.7 CM IN MAXIMUM DIAMETER. ON PRIOR 12/20/14 EXAMINATION THIS MASS MEASURES 3.1 CM. 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 2. NO EVIDENCE OF ACUTE CARDIOPULMONARY DISEASE. JOB NUMBER: [id number] [facility]
== END 2019-06-16 14:40 | disposition home or self-care (01) ==
LOC: ER 11:02
DX: R91.8 Other nonspecific abnormal finding of lung field (principal); R50.9 Fever, unspecified; R51 Headache; R53.1 Weakness; R52 Pain, unspecified; I10 Essential (primary) hypertension
CPT/HCPCS: 71046; 80053; 81003; 83605; 85027; 99284